=== PATIENT | female | born 1960 | race Caucasian/White ===

== ENCOUNTER 2022-03-05 20:56 | Inpatient (IN) | payer MEDICARE, MEDICAID ==
[2022-03-06] MEDS ORDERED: Dextrose 50% Abboject 50 ML SYRINGE SLOW IVP PRN (00:12)
[2022-03-06] MEDS ORDERED: Dextrose 5% in Water 1,000 ML IV PRN (00:12)
[2022-03-06] MEDS ORDERED: Ondansetron ODT 4 MG TAB PO PRN (00:13)
[2022-03-06] MEDS ORDERED: Acetaminophen 325 MG TAB PO PRN (00:13)
[2022-03-06] MEDS ORDERED: Ondansetron PF 4 MG/2 ML Vial IVP PRN (00:13)
[2022-03-06] MEDS ORDERED: Calcium Carbonate 500 MG ChewTAB PO PRN (00:13)
[2022-03-06] MEDS ORDERED: Acetaminophen 650 MG Suppository PR PRN (00:13)
[2022-03-06] MEDS ORDERED: HumaLOG 300 UNITS/3 ML VIAL SC PRN ×2 (00:16)
[2022-03-06] MEDS ORDERED: hydrALAZINE 20 MG/ML VIAL SLOW IVP PRN (00:27)
[2022-03-06] MEDS ORDERED: Betamethasone Val 0.1% Lotion 60 ML BOT TOP PRN (01:10)
[2022-03-06 04:02] VITALS: BMI 36.1
[2022-03-06 06:02] LABS: #Eosinphils 0.4 thou/uL (0.0-0.7); #Lymphocytes 3.1 thou/uL (1.20-3.40); #Neutrophils 6.2 thou/uL (1.40-6.50); %Basophils 0.2 % (0.0-1.0); %Eosinophils 3.3 % (0.0-10.0); %Lymphocytes 29.1 % (21.0-51.0); %Monocytes 9.2 % (0.0-10.0); %Neutrophils 58.2 % (42.0-75.0); Hemoglobin 14.9 g/dL (12.0-16.0); Mean Corpuscular HGB CONC 31.3 g/dL (32.0-36.0); Mean Corpuscular Hemoglobin 28.9 pg (27.0-31.0); Mean Corpuscular Volume 92.3 fl (78.0-98.0); Mean Platelet Volume 9.8 fL (7.4-10.4); Platelet Count 218 10x3/uL (130-400); RBC Distribution Width 12.7 % (11.5-14.5); Red Blood Cell (RBC) Count 5.15 mill/uL (4.20-5.40); White Blood Cell (WBC) Count 10.7 10x3/uL (4.8-10.8)
[2022-03-06 06:22] LABS: ALT (SGPT) 20 U/L (8-55); AST (SGOT) 14 U/L (5-34); Albumin 3.8 g/dL (3.4-4.8); Alkaline Phosphatase 114 U/L (40-110); Anion Gap 13 mmol/L (10-20); BUN (Urea Nitrogen) 21 mg/dL (9.8-20.1); Bilirubin, Total 0.6 mg/dL (0.2-1.2); Calc. Creatinine Clearance 100 mL/min (70-130); Carbon Dioxide 23 mmol/L (23-31); Chloride 106 mmol/L (98-107); Estimated GFR 84; Globulin 2.8 g/dL (2.4-3.5); Glucose 98 mg/dL (80-115); Potassium 4.1 mmol/L (3.5-5.1); Protein, Total 6.6 g/dL (5.8-8.1); Sodium 138 mmol/L (136-145)
[2022-03-06] MEDS: Enoxaparin Sodium 40 MG/0.4 ML SYRINGE SC SCH (09:10)
[2022-03-06] MEDS: Meloxicam 15 MG TAB PO SCH (09:11)
[2022-03-06] MEDS: Cyclobenzaprine 10 MG TAB PO PRN ×2 (09:11→20:43)
[2022-03-06] MEDS: Alogliptin 6.25 MG TAB PO SCH ×2 (09:11→17:06)
[2022-03-06] MEDS: ALPRAZolam 0.25 MG TAB PO SCH ×2 (09:12→20:43)
[2022-03-06] MEDS: FLUoxetine HCl 20 MG CAP PO SCH (09:12)
[2022-03-06] MEDS: metFORMIN 500 MG TAB PO SCH ×2 (09:12→17:07)
[2022-03-06] MEDS ORDERED: Non-Formulary Item 1 EACH (Albuterol Sulfate [Proair Digihaler] 90 MCG Aer.Pw.Bas) IH PRN (09:41)
[2022-03-06] MEDS: Montelukast Sodium 10 mg Tablet PO SCH (09:48)
[2022-03-06] MEDS ORDERED: Lisinopril/Hydrochlorothiazide 10 mg/12.5 mg Tablet PO SCH (10:30)
[2022-03-06] MEDS: Ipratropium Bromide 2.5 ml Neb NEB SCH ×3 (13:40→23:10)
[2022-03-07 05:24] LABS: #Eosinphils 0.3 thou/uL (0.0-0.7); #Lymphocytes 2.6 thou/uL (1.20-3.40); #Neutrophils 6.7 thou/uL (1.40-6.50); %Basophils 0.2 % (0.0-1.0); %Eosinophils 2.8 % (0.0-10.0); %Lymphocytes 24.8 % (21.0-51.0); %Monocytes 9.2 % (0.0-10.0); Hemoglobin 15.3 g/dL (12.0-16.0); Mean Corpuscular HGB CONC 32.5 g/dL (32.0-36.0); Mean Corpuscular Hemoglobin 30.3 pg (27.0-31.0); Mean Corpuscular Volume 93.3 fl (78.0-98.0); Mean Platelet Volume 9.9 fL (7.4-10.4); Platelet Count 215 10x3/uL (130-400); RBC Distribution Width 12.7 % (11.5-14.5); Red Blood Cell (RBC) Count 5.04 mill/uL (4.20-5.40); White Blood Cell (WBC) Count 10.7 10x3/uL (4.8-10.8)
[2022-03-07 05:45] LABS: ALT (SGPT) 17 U/L (8-55); AST (SGOT) 13 U/L (5-34); Albumin 3.8 g/dL (3.4-4.8); Alkaline Phosphatase 115 U/L (40-110); Anion Gap 14 mmol/L (10-20); BUN (Urea Nitrogen) 28 mg/dL (9.8-20.1); Bilirubin, Total 0.6 mg/dL (0.2-1.2); Calc. Creatinine Clearance 88 mL/min (70-130); Calcium 9.1 mg/dL (7.8-10.44); Carbon Dioxide 23 mmol/L (23-31); Chloride 104 mmol/L (98-107); Estimated GFR 72; Globulin 2.8 g/dL (2.4-3.5); Glucose 107 mg/dL (80-115); Potassium 4.1 mmol/L (3.5-5.1); Protein, Total 6.6 g/dL (5.8-8.1); Sodium 137 mmol/L (136-145)
[2022-03-07] MEDS: Ipratropium Bromide 2.5 ml Neb NEB SCH ×3 (07:10→19:45)
[2022-03-07] MEDS: Montelukast Sodium 10 mg Tablet PO SCH (09:07)
[2022-03-07] MEDS: Alogliptin 6.25 MG TAB PO SCH ×2 (09:07→16:50)
[2022-03-07] MEDS: Enoxaparin Sodium 40 MG/0.4 ML SYRINGE SC SCH (09:07)
[2022-03-07] MEDS: Meloxicam 15 MG TAB PO SCH (09:08)
[2022-03-07] MEDS: metFORMIN 500 MG TAB PO SCH ×2 (09:08→16:50)
[2022-03-07] MEDS: ALPRAZolam 0.25 MG TAB PO SCH ×2 (09:08→20:50)
[2022-03-07] MEDS: Lisinopril/Hydrochlorothiazide 10 mg/12.5 mg Tablet PO SCH (09:09)
[2022-03-07] MEDS: Empagliflozin 25 MG TAB PO SCH (09:09)
[2022-03-07] MEDS ORDERED: FLUoxetine HCl 20 MG CAP PO SCH (09:15)
[2022-03-07] MEDS: Melatonin 3 MG TAB PO PRN (20:57)
[2022-03-07] MEDS: Cyclobenzaprine 10 MG TAB PO PRN (20:57)
[2022-03-08] MEDS: Ipratropium Bromide 2.5 ml Neb NEB SCH ×4 (02:42→20:14)
[2022-03-08 05:38] LABS: #Eosinphils 0.3 thou/uL (0.0-0.7); #Lymphocytes 2.9 thou/uL (1.20-3.40); #Neutrophils 6.8 thou/uL (1.40-6.50); %Basophils 0.3 % (0.0-1.0); %Eosinophils 2.7 % (0.0-10.0); %Lymphocytes 26.5 % (21.0-51.0); %Monocytes 8.6 % (0.0-10.0); %Neutrophils 61.9 % (42.0-75.0); Hemoglobin 15.6 g/dL (12.0-16.0); Mean Corpuscular Hemoglobin 29.8 pg (27.0-31.0); Mean Corpuscular Volume 92.9 fl (78.0-98.0); Mean Platelet Volume 9.9 fL (7.4-10.4); Platelet Count 221 10x3/uL (130-400); RBC Distribution Width 12.7 % (11.5-14.5); Red Blood Cell (RBC) Count 5.23 mill/uL (4.20-5.40)
[2022-03-08 05:59] LABS: ALT (SGPT) 20 U/L (8-55); AST (SGOT) 14 U/L (5-34); Alkaline Phosphatase 122 U/L (40-110); Anion Gap 15 mmol/L (10-20); BUN (Urea Nitrogen) 29 mg/dL (9.8-20.1); Bilirubin, Total 0.7 mg/dL (0.2-1.2); Calc. Creatinine Clearance 70 mL/min (70-130); Calcium 9.2 mg/dL (7.8-10.44); Carbon Dioxide 22 mmol/L (23-31); Chloride 102 mmol/L (98-107); Estimated GFR 55; Glucose 105 mg/dL (80-115); Potassium 4.1 mmol/L (3.5-5.1); Sodium 135 mmol/L (136-145)
[2022-03-08] MEDS: FLUoxetine HCl 20 MG CAP PO SCH (08:40)
[2022-03-08] MEDS: Lisinopril/Hydrochlorothiazide 10 mg/12.5 mg Tablet PO SCH (08:40)
[2022-03-08] MEDS: Alogliptin 6.25 MG TAB PO SCH ×2 (08:40→17:04)
[2022-03-08] MEDS: ALPRAZolam 0.25 MG TAB PO SCH ×2 (08:41→20:03)
[2022-03-08] MEDS: Meloxicam 15 MG TAB PO SCH (08:41)
[2022-03-08] MEDS: Montelukast Sodium 10 mg Tablet PO SCH (08:41)
[2022-03-08] MEDS: metFORMIN 500 MG TAB PO SCH ×2 (08:41→17:04)
[2022-03-08] MEDS: Enoxaparin Sodium 40 MG/0.4 ML SYRINGE SC SCH (08:42)
[2022-03-08] MEDS: Empagliflozin 25 MG TAB PO SCH (08:42)
[2022-03-08] MEDS: Cyclobenzaprine 10 MG TAB PO PRN (19:23)
[2022-03-08] MEDS: Melatonin 3 MG TAB PO PRN (20:03)
[2022-03-09] MEDS ORDERED: Diclofenac 1% 100 GM GEL TP PRN (00:31)
[2022-03-09] MEDS ORDERED: hydrOXYzine 25 MG TAB PO SCH (00:45)
[2022-03-09] MEDS: Ipratropium Bromide 2.5 ml Neb NEB SCH ×3 (01:20→13:50)
[2022-03-09 06:02] LABS: #Eosinphils 0.4 thou/uL (0.0-0.7); #Lymphocytes 2.4 thou/uL (1.20-3.40); #Monocytes 1.2 thou/uL (0.11-0.59); #Neutrophils 7.4 thou/uL (1.40-6.50); %Basophils 0.2 % (0.0-1.0); %Eosinophils 3.1 % (0.0-10.0); %Lymphocytes 20.9 % (21.0-51.0); %Monocytes 10.8 % (0.0-10.0); %Neutrophils 65.1 % (42.0-75.0); Hemoglobin 16.4 g/dL (12.0-16.0); Mean Corpuscular HGB CONC 32.6 g/dL (32.0-36.0); Mean Corpuscular Hemoglobin 30.2 pg (27.0-31.0); Mean Corpuscular Volume 92.5 fl (78.0-98.0); Mean Platelet Volume 9.5 fL (7.4-10.4); Platelet Count 214 10x3/uL (130-400); RBC Distribution Width 12.7 % (11.5-14.5); Red Blood Cell (RBC) Count 5.43 mill/uL (4.20-5.40); White Blood Cell (WBC) Count 11.4 10x3/uL (4.8-10.8)
[2022-03-09 06:28] LABS: ALT (SGPT) 23 U/L (8-55); AST (SGOT) 16 U/L (5-34); Alkaline Phosphatase 121 U/L (40-110); Anion Gap 14 mmol/L (10-20); BUN (Urea Nitrogen) 39 mg/dL (9.8-20.1); Bilirubin, Total 0.6 mg/dL (0.2-1.2); Calc. Creatinine Clearance 78 mL/min (70-130); Calcium 9.3 mg/dL (7.8-10.44); Carbon Dioxide 23 mmol/L (23-31); Chloride 102 mmol/L (98-107); Estimated GFR 63; Globulin 3.1 g/dL (2.4-3.5); Glucose 96 mg/dL (80-115); Potassium 4.2 mmol/L (3.5-5.1); Protein, Total 7.1 g/dL (5.8-8.1); Sodium 135 mmol/L (136-145)
[2022-03-09] MEDS: Alogliptin 6.25 MG TAB PO SCH (08:04)
[2022-03-09] MEDS: Montelukast Sodium 10 mg Tablet PO SCH (08:04)
[2022-03-09] MEDS: FLUoxetine HCl 20 MG CAP PO SCH (08:04)
[2022-03-09] MEDS: metFORMIN 500 MG TAB PO SCH (08:05)
[2022-03-09] MEDS: ALPRAZolam 0.25 MG TAB PO SCH (08:05)
[2022-03-09] MEDS: Enoxaparin Sodium 40 MG/0.4 ML SYRINGE SC SCH (08:06)
[2022-03-09] MEDS: Empagliflozin 25 MG TAB PO SCH (08:37)
[2022-03-09] MEDS: Lisinopril/Hydrochlorothiazide 10 mg/12.5 mg Tablet PO SCH (08:37)
[2022-03-09 08:48] VITALS: BP 135/76; TEMP 97.3
[2022-03-09] MEDS: Meloxicam 15 MG TAB PO SCH (09:55)
== END 2022-03-09 14:15 | disposition home or self-care (01) | DRG 305 ==
LOC: NEURO 20:56 → MSONC 03-08 11:00
PROVIDERS: ADMIT Student in an Organized Health Care Education/Training Program; ATTEND Student in an Organized Health Care Education/Training Program
DX: I16.0 Hypertensive urgency (principal); I16.1 Hypertensive emergency; Z20.822 Contact with and (suspected) exposure to COVID-19; E11.9 Type 2 diabetes mellitus without complications; F41.9 Anxiety disorder, unspecified; F31.9 Bipolar disorder, unspecified; E66.9 Obesity, unspecified; F12.90 Cannabis use, unspecified, uncomplicated; I10 Essential (primary) hypertension; F17.210 Nicotine dependence, cigarettes, uncomplicated; J45.909 Unspecified asthma, uncomplicated; G89.29 Other chronic pain; M54.9 Dorsalgia, unspecified; Z88.6 Allergy status to analgesic agent; Z88.8 Allergy status to other drugs, medicaments and biological substances; Z79.899 Other long term (current) drug therapy; Z98.51 Tubal ligation status; Z98.49 Cataract extraction status, unspecified eye; Z68.36 Body mass index [BMI] 36.0-36.9, adult
CPT/HCPCS: 36415; 36416; 80053; 85025; 94640; J0360; J1650; U0003; U0005